=== PATIENT | male | born 1930 | race Caucasian/White ===

== ENCOUNTER 2016-10-05 09:47 | Observation (INO) | payer OTHER, BC ==
--- NOTE | 2016-10-05 10:43 | EDPHY ---
H & P Stated Complaint: sob, cough, aches, weak, no cp Time Seen by Provider: 10/05/16 10:18 HPI/ROS: CHIEF COMPLAINT: Cough and weakness HISTORY OF PRESENT ILLNESS: This is an 86-year-old male with history of coronary artery disease (tachyarrhythmia with defibrillator in place, and coronary artery disease status post stenting) and heart failure who presents with 2 days of nonproductive cough, worsening shortness of breath, difficulty sleeping, and poor appetite. He has not had fever. He denies chest pain. He has had an influenza vaccination. He is compliant with his medications, including Coumadin and Lasix. He does not have orthopnea or PND. He has not had abdominal pain, vomiting, or diarrhea. REVIEW OF SYSTEMS: A ten point review of systems was performed and is negative with the exception of the items mentioned in the HPI. Source: Patient, Family Exam Limitations: No limitations - Personal History Current Tetanus/Diphtheria Vaccine: Unsure Current Tetanus Diphtheria and Acellular Pertussis (TDAP): Unsure Tetanus Vaccine Date: < 10 years - Medical/Surgical History Hx Asthma: No Hx Chronic Respiratory Disease: No Hx Diabetes: No Hx Cardiac Disease: Yes Hx Renal Disease: No Hx Cirrhosis: No Hx Alcoholism: No Hx HIV/AIDS: No Hx Splenectomy or Spleen Trauma: No Other PMH: 1. Coronary artery disease status post LAD stenting. 2. Check arrhythmia with placement of AICD. 3. Valvular disease. 4. Chronic congestive heart failure. 5. Hypertension. 6. Prostate cancer. 7. Hypothyroid - Social History Smoking Status: Never smoked Additional Social History: He lives with his in [facility]. 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 He quit smoking in 1960. He occasionally drinks alcohol. - Physical Exam Exam: General Appearance: Alert. Vital signs reviewed. Blood pressure 135/75, otherwise normal at triage. Eyes: Pupils equal and round, no conjunctival injection, no discharge. Anicteric. ENT, Mouth: Mucous membranes are moist, no oropharyngeal erythema or edema. Neck: No lymphadenopathy, supple. Respiratory: Lungs with diminished breath sounds Cardiovascular: Irregularly irregular; no murmur, rub, or gallop. Gastrointestinal: Abdomen is soft and nontender, no masses or organomegaly, bowel sounds normal. Skin: Warm and dry, no rashes on exposed skin, normal color. Back: Nontender to palpation over the thoracolumbar spine. No CVAT. Extremities: No lower extremity edema, no calf tenderness or swelling. Neurological: Alert and oriented. Moving all four extremities easily and equally. TARUN. EOMI. Facial expression symmetric. Tongue midline. Psychiatric: Normal affect. Constitutional: Initial Vital Signs Temperature (C) 37.0 C 10/05/16 10:00 Respiratory Rate 18 10/05/16 10:00 Blood Pressure 135/75 H 10/05/16 10:00 O2 Sat (%) 94 10/05/16 10:00 O2 Delivery Mode Room Air Allergies/Adverse Reactions: No Known Allergies Allergy (Verified 05/31/16 17:07) Home Medications: Medication Instructions Recorded Aspirin EC [Aspirin EC 81 mg (*)] 81 mg PO DAILY 10/05/16 Atorvastatin Calcium [Lipitor 10 10 mg PO DAILY 10/05/16 mg (*)] Carvedilol Cr [Coreg Cr (RX)] 20 mg PO DAILY 10/05/16 Cholecalciferol Vit D3 [Vitamin D3 1,000 units PO DAILY 10/05/16 (*)] Furosemide [Lasix 20 MG (*)] 20 mg PO DAILY 10/05/16 Herbals/Supplements -Info Only 1 ea PO DAILY 10/05/16 Levothyroxine [Synthroid 25 mcg 25 mcg PO DAILY06 10/05/16 (*)] Vernon-3 Fatty Acids [Fish Oil 1000 2,000 mg PO DAILY 10/05/16 mg (*)] Warfarin Sodium [Coumadin 5MG (*)] 2.5 mg PO MWF@0900 10/05/16 Warfarin Sodium [Coumadin 5MG (*)] 5 mg PO SUTUTHSA@0900 10/05/16 Medical Decision Making - Diagnostics Imaging: Two-view chest x-ray reviewed by me. Shows cardiomegaly, no infiltrate. ED Course/Re-evaluation: 86-year-old male with history of coronary artery disease and who presents with generalized malaise, decreased appetite, and persistent cough. Influenza test is positive. At noon he began vomiting. He received Zofran IV. At this point he cannot tolerate Tamiflu. He is being admitted to the hospital for supportive care as needed. Differential Diagnosis: I considered a differential diagnosis including but not limited to pneumonia, urinary tract infection, viral syndrome, influenza, acute on chronic CHF, and ACS. - Data Points Laboratory Results: Laboratory Results 10/05/16 10:16 10/05/16 10:16 10/05/16 10/05/16 11:22 10:16 WBC 4.63 10^3/uL (3.80-9.50) RBC 4.62 10^6/uL (4.40-6.38) Hgb 15.1 g/dL (13.7-17.5) Hct 43.3 % (40.0-51.0) MCV 93.7 fL (81.5-99.8) MCH 32.7 pg (27.9-34.1) MCHC 34.9 g/dL (32.4-36.7) RDW 12.8 % (11.5-15.2) Plt Count 80 L 10^3/uL (150-400) MPV 11.2 fL (8.7-11.7) Neut % (Auto) 65.3 % (39.3-74.2) Lymph % (Auto) 17.3 % (15.0-45.0) Whitfield % (Auto) 14.9 H % (4.5-13.0) Eos % (Auto) 1.5 % (0.6-7.6) Baso % (Auto) 0.6 % (0.3-1.7) Nucleat RBC Rel Count 0.0 % (0.0-0.2) Absolute Neuts (auto) 3.02 10^3/uL (1.70-6.50) Absolute Lymphs (auto) 0.80 L 10^3/uL (1.00-3.00) Absolute Monos (auto) 0.69 10^3/uL (0.30-0.80) Absolute Eos (auto) 0.07 10^3/uL (0.03-0.40) Absolute Basos (auto) 0.03 10^3/uL (0.02-0.10) Absolute Nucleated RBC 0.00 10^3/uL (0-0.01) Immature Gran % 0.4 % (0.0-1.1) Immature Gran # 0.02 10^3/uL (0.00-0.10) PT 27.0 H SEC (12.0-15.0) INR 2.47 H (0.83-1.16) Sodium 136 mEq/L (134-144) Potassium 4.6 mEq/L (3.5-5.2) Chloride 99 mEq/L (97-110) Carbon Dioxide 23 mEq/l (22-31) Anion Gap 14 mEq/L (8-16) BUN 14 mg/dL (7-23) Creatinine 1.0 mg/dL (0.7-1.3) Estimated GFR > 60 Glucose 110 H mg/dL (70-100) Calcium 9.9 mg/dL (8.5-10.4) Troponin I 0.030 ng/mL (0-0.034) NT-Pro-B Natriuret Pep 1900 H pg/mL (0-450) Influenza Typ A,B (DFA) POSITIVE FOR FLU A H (NEGATIVE) Medications Given: Discontinued Medications Ondansetron HCl (Zofran) 4 mg IVP ONCE ONE Stop: 10/05/16 12:31 Last Admin: 10/05/16 13:04 Dose: 4 mg Departure - Departure Disposition: [facility] Acute Clinical Impression: Influenza A Condition: Good
[2016-10-05 10:49] LABS: % IMMATURE GRANULYOCYTES 0.4 % (0.0-1.1); ABSOLUTE IMMATURE GRANULOCYTES 0.02 10^3/uL (0.00-0.10); ADD DIFF? NO; ADD MORPH? NO; ADD SCAN? NO; ATYPICAL LYMPHOCYTE FLAG 10 (0-99); FRAGMENT RBC FLAG 0 (0-99); HEMATOCRIT 43.3 % (40.0-51.0); HEMOGLOBIN 15.1 g/dL (13.7-17.5); LEFT SHIFT FLG 0 (0-99); LIPEMIA HEMOLYSIS FLAG 90 (0-99); MEAN CELL HEMOGLOBIN 32.7 pg (27.9-34.1); MEAN CELL HEMOGLOBIN CONCENTR. 34.9 g/dL (32.4-36.7); MEAN CELL VOLUME 93.7 fL (81.5-99.8); MEAN PLATELET VOLUME 11.2 fL (8.7-11.7); PLATELET CLUMPS FLAG 30 (0-99); PLATELET COUNT 80 10^3/uL (150-400); RED BLOOD CELL COUNT 4.62 10^6/uL (4.40-6.38); RED CELL DISTRIBUTION WIDTH 12.8 % (11.5-15.2)
[2016-10-05 11:00] LABS: ANION GAP 14 mEq/L (8-16); CALCIUM 9.9 mg/dL (8.5-10.4); CARBON DIOXIDE 23 mEq/l (22-31); CHLORIDE 99 mEq/L (97-110); GLOMERULAR FILTRATION RATE > 60; GLUCOSE 110 mg/dL (70-100); POTASSIUM 4.6 mEq/L (3.5-5.2); SODIUM 136 mEq/L (134-144)
--- NOTE | 2016-10-05 11:09 | CPEKG ---
Heart Rate: 89 RR Interval: 674 QRSD Interval: 84 QT Interval: 364 QTC Interval: 443 QRS [place]am[place]: 29 T Wave [place]: -70 EKG Severity - ABNORMAL ECG - EKG Impression: ATRIAL FIBRILLATION, V-RATE 71-106 EKG Impression: LOW VOLTAGE IN FRONTAL LEADS EKG Impression: BORDERLINE R WAVE PROGRESSION, ANTERIOR LEADS EKG Impression: BORDERLINE T ABNORMALITIES, INFERIOR LEADS Electronically Signed By: Padma Enrique 05-Oct-2016 17:42:18
[2016-10-05 11:11] LABS: INR 2.47 (0.83-1.16)
[2016-10-05] MEDS ORDERED: ONDANSETRON 4 MG/2 ML VIAL ONE (11:59)
--- NOTE | 2016-10-05 12:12 | DX ---
Chest, Two Views 1447 hours History: Cough, dyspnea. Comparison: November 2012 Findings: Cardiac silhouette is moderately enlarged. Unipolar pacemaker. Mild bilateral peribronchi al thickening. No pneumonia, congestive heart failure, pleural effusion, or pneumothorax. Impression: 1. Cardiomegaly. 2. Bronchitis. 3. No definite pneumonia or pleural effusion.
[2016-10-05] MEDS ORDERED: ONDANSETRON 4 MG/2 ML VIAL IVP ONE (12:30)
[2016-10-05] MEDS ORDERED: ACETAMINOPHEN 325 MG TAB PO PRN (14:26)
[2016-10-05] MEDS ORDERED: ONDANSETRON 4 MG/2 ML VIAL IVP PRN (14:26)
--- NOTE | 2016-10-05 15:08 | GHP ---
[f rep st] HISTORY AND PHYSICAL DATE OF ADMISSION: 10/05/2016 CHIEF COMPLAINT: Cough and weakness. HISTORY OF PRESENT ILLNESS: This is an 86-year-old male with a history of coronary artery disease an d chronic congestive heart failure, who presented to the hospital with 2 days of worsening weakness. The patient states that he has not had anything to eat for 2 days. He has hardly been able to get o ut of bed and has been very sleepy. He denies any body aches. He denies any fevers, but he was note d to have a temperature upon arrival to the Medical Surgical floor. He denies any sick contacts. He reports a productive cough. He denies any chest pain. He had some nausea earlier today and 1 episo de of vomiting, but denies any diarrhea. He denies any urinary complaints. PAST MEDICAL HISTORY: Congestive heart failure, valvular heart disease, prostate cancer. PAST SURGICAL HISTORY: 1. Prostatectomy. 2. LAD stent. 3. AICD placement. HOME MEDICATIONS: Reviewed. Refer to [facility] for details. ALLERGIES: No known drug allergies. SOCIAL HISTORY: The patient lives independently with his in a house in [facility]. He dri nks alcohol occasionally. He denies any tobacco or illicit drug use. FAMILY HISTORY: Reviewed and noncontributory. REVIEW OF SYSTEMS: A comprehensive 10-point review of systems was done and was negative except for a s mentioned in the HPI. PHYSICAL EXAM: VITAL SIGNS: Blood pressure was 118/82, pulse of 82, respiratory rate 18, O2 saturat ion 99% on 2 L, temperature afebrile. GENERAL: In no acute distress. HEAD: Normocephalic, atrauma tic. Eyes are PERRLA. Sclerae anicteric. Mouth: Moist mucous membranes. NECK: Supple. No lymph adenopathy. CARDIOVASCULAR: S1, S2. There is no JVD. There is trace lower extremity edema. PULMO NARY: No wheezes rales or rhonchi. No respiratory distress. ABDOMEN: Soft, nontender, nondistende d. No guarding or rebound tenderness. Normoactive bowel sounds. EXTREMITIES: No clubbing or cyano sis. NEURO: Cranial nerves II through XII grossly intact. No focal motor or sensory deficits. SKI N: Clear, no rashes. DIAGNOSTICS: 1. Chest x-ray, which I visualized and personally interpreted, shows cardiomegaly, but no obvious pn eumonia or signs of acute congestive heart failure. 2. WBC is 4.6, hemoglobin 15.1, hematocrit 43.3, platelets 80. INR 2.47. 3. Sodium 136, potassium 4.6, chloride 99, CO2 23, BUN 14, creatinine 1, glucose 110. 4. BNP 18year-old. Troponin was 0.030. 5. Influenza was positive for influenza A. ASSESSMENT AND PLAN: This is an 86-year-old male presenting with weakness and shortness of breath, f ound to have: 1. Influenza A. Plan: The patient will be started on Tamiflu. Will encourage both oral nutrition and hydration. 2. History of chronic congestive heart failure that appears to be compensated. Plan: Monitor for s igns and symptoms of worsening congestive heart failure. 3. Elevated INR with history of being on warfarin. Plan: Continue to monitor INR while in the hosp ital. The patient will be admitted to the hospital under observation. He may be eligible for discharge on 10/06/2016 if he is eating and appears to be at his baseline. /[id number]/MODL
[2016-10-05] MEDS: WARFARIN SODIUM 5 MG TAB PO SCH (15:50)
[2016-10-05] MEDS: OSELTAMIVIR PHOSPHATE 75 MG CAP PO SCH (16:56)
[2016-10-05] MEDS ORDERED: MELATONIN 3 MG TAB PO SCH (21:00)
[2016-10-06 05:17] LABS: INR 2.86 (0.83-1.16); PROTIME(PATIENT) 30.4 SEC (12.0-15.0)
[2016-10-06] MEDS ORDERED: LEVOTHYROXINE 25 MCG TAB PO SCH (06:00)
[2016-10-06] MEDS ORDERED: CHOLECALCIFEROL VIT D3 1,000 UNITS TAB PO SCH (09:00)
[2016-10-06] MEDS ORDERED: ATORVASTATIN CALCIUM 10 MG TAB PO SCH (09:00)
[2016-10-06] MEDS ORDERED: ASPIRIN EC 81 MG TAB PO SCH (09:00)
[2016-10-06] MEDS ORDERED: OMEGA-3 FATTY ACIDS 1,000 MG CAP PO SCH (09:00)
[2016-10-06] MEDS ORDERED: Herbals/Supplements -Info Only PO SCH (09:00)
[2016-10-06] MEDS ORDERED: FUROSEMIDE 20 MG TAB PO SCH (09:00)
[2016-10-06] MEDS ORDERED: CARVEDILOL CR 20 MG CAP PO SCH (09:00)
[2016-10-06 09:21] VITALS: BP 99/60; PULSE 75; RESP 16; TEMP 98.5; O2SAT 91
[2016-10-06] MEDS: OSELTAMIVIR PHOSPHATE 75 MG CAP PO SCH (09:22)
[2016-10-06] MEDS: WARFARIN SODIUM 5 MG TAB PO SCH (09:22)
--- NOTE | 2016-10-06 13:35 | GDS ---
[f rep st] DISCHARGE SUMMARY DISCHARGE DIAGNOSES: 1. Influenza A. 2. History of chronic congestive heart failure. PHYSICAL EXAM: GENERAL: The patient is alert and oriented, in no acute distress. VITAL SIGNS: Afe brile at 36.9, pulse 75, respiratory rate 16, blood pressure is 99/60, saturating 91% on room air. I have seen and evaluated the patient on the day of discharge. HOSPITAL COURSE: Mr. Brothers is an 86-year-old male, who presented to the emergency room with compla ints of cough and weakness. He was evaluated and diagnosed with influenza A. During this hospitaliz ation, he was treated with supportive care, including hydration and supportive medication management. His symptoms have significantly improved. He is tolerating a regular diet. He is eager to be disc harged home. He will follow up in the outpatient setting with his primary care physician. There are no pending studies. DISCHARGE MEDICATIONS: I have provided the patient a prescription for Tamiflu. I have reviewed the patient's care with Dr. Walter Kennedy. /[id number]/MODL
[2016-10-07] MEDS ORDERED: WARFARIN SODIUM 5 MG TAB PO SCH (09:00)
== END 2016-10-06 11:50 | disposition home or self-care (01) ==
LOC: F3E 13:08
PROVIDERS: ADMIT Family Medicine; ATTEND Family Medicine
DX: J11.1 Influenza due to unidentified influenza virus with other respiratory manifestations (principal); I25.10 Atherosclerotic heart disease of native coronary artery without angina pectoris; I50.9 Heart failure, unspecified; I10 Essential (primary) hypertension; Z85.46 Personal history of malignant neoplasm of prostate; Z95.810 Presence of automatic (implantable) cardiac defibrillator; Z95.5 Presence of coronary angioplasty implant and graft
CPT/HCPCS: 71020; 93005; 96374; 97165; 99285; G0378; G8987; G8988; G8989; J2405

== ENCOUNTER → 2016-12-09 | Outpatient (CLI) | payer OTHER, BC | LOC: BMCIMAGING 12:26 | PROVIDERS: ATTEND Internal Medicine Cardiovascular Disease | DX: R06.09 Other forms of dyspnea (principal) ==

== ENCOUNTER 2018-11-15 18:16 | Inpatient (IN) | payer OTHER, BC ==
--- NOTE | 2018-11-15 19:06 | EDPHY ---
H & P Time Seen by Provider: 11/15/18 18:34 HPI/ROS: HPI Fatigue, shortness of breath. 88-year-old male by private vehicle with family. This patient has a history of atrial fibrillation and arrhythmia. He has a AICD. He reports that for the last day and a half he has had increased fatigue and shortness of breath when ambulating. He denies any associated chest pain. Denies palpitations. 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 He is currently on Eliquis. ROS: Constitutional: No fever, no chills. As above. Eyes: No discharge. No changes in vision. ENT: No sore throat. No nasal congestion or rhinorrhea. Respiratory: No cough. As above. Cardiac: No chest pain, no palpitations. Gastrointestinal: No abdominal pain, no vomiting, no diarrhea. Genitourinary: No hematuria. No dysuria or increased frequency with urination. Musculoskeletal: No back pain. No neck pain. No myalgias or arthralgias. Skin: No rashes. Neurological: No headache. No focal weakness or altered sensation. Past medical history: Coronary artery disease, status post LAD stenting, valvular disease, chronic congestive heart failure, hypertension, prostate cancer, hypothyroidism. Social history: Nonsmoker. Here with family. No alcohol. Physical Exam: General Appearance: Alert, is mildly anxious. This patient is responding to questions appropriately and in full sentences. This patient appears well- hydrated and well-nourished. Eyes: Pupils equal and round no pallor or injection. No lid edema, erythema or injection. Respiratory: There are no retractions, lungs are clear to auscultation anteriorly with good air movement bilaterally. No tachypnea. Cardiovascular: Irregular irregular rhythm. Faint holosystolic murmur. Gastrointestinal: Abdomen is soft and nontender, no masses, bowel sounds normal. No focal tenderness at McBurney's point. No Lorenzo sign. Neurological: Motor sensory function is grossly intact. Cranial nerves are normal. Gait is normal. Skin: Warm and dry, no rashes. Musculoskeletal: Neck is supple and nontender. Extremities are symmetrical. All joints range without pain or impingement. Psychiatric: No agitation. No depression. Database: EKG: EKG time is 6:51 p.m.: EKG shows narrow complex atrial fibrillation with intermittent PVCs, ventricular rate average 102. T-wave inversions noted in 2, 3 and AVF. Interpreted by me. Imaging: Chest x-ray AP portable; the cardiac mediastinal silhouette is unremarkable. No evidence of infiltrate or pneumothorax. No acute cardiopulmonary disease process noted. Interpreted by me. Procedures: Emergency department course: Triage vital signs reviewed and are unremarkable. IV was placed. The patient was placed on a environmental monitoring technician. Room air pulse oximetry is 96%. EKG obtained and reviewed by myself. 8:00 p.m., the patient was re-evaluated, he is resting comfortably at this time. Vital signs reviewed and are unremarkable. I discussed the results of his emergency department workup with him and family. I reviewed plan for admission. All of their questions were answered. Hospitalist paged. Patient' s presentation is likely secondary to exacerbation of his chronic CHF. 8:10 p.m., spoke with on-call hospitalist. Case discussed in detail. Patient accepted for admission to telemetry observation by Dr. Osborne. Differential Diagnosis: The differential diagnosis on this patient includes but is not limited to chronic congestive heart failure, atrial fibrillation, acute coronary syndrome, pulmonary embolus. Pneumonia unlikely. This represents a partial list of diagnoses considered. These considerations are based on history, physical exam , past history, reassessment and diagnostic testing. Smoking Status: Never smoked Constitutional: Initial Vital Signs Temperature (C) 36.9 C 11/15/18 18:24 Heart Rate 96 11/15/18 18:24 Respiratory Rate 16 11/15/18 18:24 Blood Pressure 106/75 11/15/18 18:24 O2 Sat (%) 96 11/15/18 18:24 O2 Delivery Mode Nasal Cannula O2 (L/minute) 2 Allergies/Adverse Reactions: No Known Allergies Allergy (Verified 11/15/18 20:09) Home Medications: Medication Instructions Recorded Atorvastatin Calcium [Lipitor 10 10 mg PO DAILY 10/05/16 mg (*)] Carvedilol Cr [Coreg Cr] 20 mg PO DAILY 10/05/16 Furosemide [Lasix 20 MG (*)] 20 mg PO DAILY 10/05/16 Levothyroxine [Synthroid 25 mcg 25 mcg PO DAILY06 10/05/16 (*)] Warfarin Sodium [Coumadin 5MG (*)] 2.5 mg PO MWF@0900 10/05/16 Warfarin Sodium [Coumadin 5MG (*)] 5 mg PO SUTUTHSA@0900 10/05/16 Allopurinol [Allopurinol 100 MG 200 mg PO DAILY 11/15/18 (*)] Potassium Chloride 20 meq PO DAILY 11/15/18 Medical Decision Making - Data Points Laboratory Results: Laboratory Results 11/16/18 04:48 11/16/18 04:48 Medications Given: Acetaminophen (Tylenol) 650 mg PO Q4HRS PRN PRN Reason: Pain, Mild/Fever, Can Take PO Stop: 05/14/19 21:13 Last Admin: 11/16/18 15:53 Dose: 650 mg Atorvastatin Calcium (Lipitor) 10 mg PO DAILY [facility] Stop: 05/15/19 08:59 Last Admin: 11/16/18 08:40 Dose: 10 mg Carvedilol (Coreg Cr) 20 mg PO DAILY [facility] Stop: 05/15/19 08:59 Last Admin: 11/16/18 09:22 Dose: 20 mg Furosemide (Lasix) 20 mg PO DAILY [facility] Stop: 05/15/19 08:59 Last Admin: 11/16/18 08:40 Dose: 20 mg Levothyroxine Sodium (Synthroid) 25 mcg PO DAILY06 [facility] Stop: 05/15/19 05:59 Last Admin: 11/17/18 05:15 Dose: 25 mcg Warfarin Sodium (Coumadin) 2.5 mg PO MWF@0900 [facility] Stop: 05/15/19 08:59 Last Admin: 11/16/18 10:06 Dose: 2.5 mg Discontinued Medications Allopurinol (Allopurinol) 200 mg PO DAILY PRN PRN Reason: Gout Flares Stop: 05/14/19 21:16 Last Admin: 11/16/18 10:11 Dose: 200 mg Sodium Chloride (Ns) 250 mls @ 250 mls/hr IV ONCE ONE Stop: 11/16/18 16:56 Last Admin: 11/16/18 16:18 Dose: 250 mls Sodium Chloride (Ns) 500 mls @ 0 mls/hr IV ONCE ONE PRN Reason: As Directed Stop: 11/16/18 18:31 Last Admin: 11/16/18 18:30 Dose: 500 mls Point of Care Test Results: Chemistry 11/15/18 19:00 POC Troponin I 0.02 ng/mL ng/mL (0.00-0.08) Departure - Departure Disposition: [facility] Inpatient Acute Clinical Impression: Dyspnea, Fatigue, History of chronic CHF, Atrial fibrillation
[2018-11-15 19:18] LABS: INR 1.89 (0.83-1.16); PROTIME(PATIENT) 21.8 SEC (12.0-15.0)
[2018-11-15 19:19] LABS: PLATELET COUNT 72 10^3/uL (150-400)
--- NOTE | 2018-11-15 21:01 | PDGENHP ---
History and Physical - Chief Complaint sob, - History of Present Illness 88-year-old male with past medical history of AFib, hypertension, hypothyroid, hyperlipidemia presented to the ER with increased dyspnea and fatigue. He said for the last 24 hr he has felt more short of breath and generally fatigued and felt that something was "not quite right". He chronically uses oxygen at night and has not had to increase his oxygen requirement. He denies any new onset lower extremity edema, weight gain or orthopnea. He denies any chest pain, cough, nausea vomiting or new onset of fevers. He said he could not place his finger on it but just felt that he was not right and something was wrong and he had increased shortness of breath and overall lassitude. History Information - Allergies/Home Medication List Allergies/Adverse Reactions: No Known Allergies Allergy (Verified 11/15/18 20:09) Home Medications: Atorvastatin Calcium [Lipitor 10 mg (*)] 10 mg PO DAILY 10/05/16 [Last Taken ] Carvedilol Cr [Coreg Cr] 20 mg PO DAILY 10/05/16 [Last Taken 10/04/16] Furosemide [Lasix 20 MG (*)] 20 mg PO DAILY 10/05/16 [Last Taken 10/04/16] Levothyroxine [Synthroid 25 mcg (*)] 25 mcg PO DAILY06 10/05/16 [Last Taken ] Warfarin Sodium [Coumadin 5MG (*)] 2.5 mg PO MWF@0900 10/05/16 [Last Taken 10/04] Warfarin Sodium [Coumadin 5MG (*)] 5 mg PO SUTUTHSA@0900 10/05/16 [Last Taken ] Allopurinol [Allopurinol 100 MG (*)] 200 mg PO DAILY PRN 11/15/18 [Last Taken Unknown] Potassium Chloride 20 meq PO DAILY 11/15/18 [Last Taken Unknown] I have personally reviewed and updated: family history, medical history, social history, surgical history - Past Medical History Additional medical history: AFib, aortic insufficiency, tricuspid insufficiency , hypertension, gout - Surgical History Additional surgical history: Nothing pertinent - Family History Positive for: non-pertinent - Social History Smoking Status: Never smoked Review of Systems Review of Systems: ROS: 10pt was reviewed & negative except for what was stated in HPI & below Physical Exam Physical Exam: Temp Pulse Resp BP Pulse Ox 36.9 C 79 20 128/78 H 98 11/15/18 18:24 11/15/18 20:17 11/15/18 20:17 11/15/18 20:17 11/15/18 20:17 O2 (L/minute) 2 Constitutional: no apparent distress, appears nourished, not in pain Eyes: PERRL, anicteric sclera, EOMI Ears, Nose, Mouth, Throat: moist mucous membranes, hearing normal, ears appear normal, no oral mucosal ulcers Cardiovascular: regular rate and rhythym, no murmur, rub, or gallop, No edema ( Trace edema to calves) Respiratory: no respiratory distress, no rales or rhonchi, clear to auscultation Gastrointestinal: normoactive bowel sounds, soft, non-tender abdomen, no palpable masses Genitourinary: no bladder fullness, no bladder tenderness Skin: warm, normal color, no rashes or abrasions, no fluctuance, no induration, No mottled Musculoskeletal: full muscle strength, no muscle tenderness, normal joint ROM, no joint effusions Psychiatric: interacting appropriately, not anxious, not encephalopathic, thought process linear Lymph, Heme, Immunologic: no cervical LAD, no supraclavicular LAD Lab Data & Imaging Review 11/15/18 18:55 11/15/18 18:55 WBC 4.71 10^3/uL (3.80-9.50) 11/15/18 18:55 RBC 4.20 10^6/uL (4.40-6.38) L 11/15/18 18:55 Hgb 13.7 g/dL (13.7-17.5) 11/15/18 18:55 Hct 40.3 % (40.0-51.0) 11/15/18 18:55 MCV 96.0 fL (81.5-99.8) 11/15/18 18:55 MCH 32.6 pg (27.9-34.1) 11/15/18 18:55 MCHC 34.0 g/dL (32.4-36.7) 11/15/18 18:55 RDW 14.6 % (11.5-15.2) 11/15/18 18:55 Plt Count 72 10^3/uL (150-400) L 11/15/18 18:55 MPV 11.5 fL (8.7-11.7) 11/15/18 18:55 Neut % (Auto) 66.0 % (39.3-74.2) 11/15/18 18:55 Lymph % (Auto) 19.3 % (15.0-45.0) 11/15/18 18:55 Gregg % (Auto) 13.0 % (4.5-13.0) 11/15/18 18:55 Eos % (Auto) 1.1 % (0.6-7.6) 11/15/18 18:55 Baso % (Auto) 0.4 % (0.3-1.7) 11/15/18 18: Nucleat RBC Rel Count 0.0 % (0.0-0.2) 11/15/18 18:55 Absolute Neuts (auto) 3.11 10^3/uL (1.70-6.50) 11/15/18 18:55 Absolute Lymphs (auto) 0.91 10^3/uL (1.00-3.00) L 11/15/18 18:55 Absolute Monos (auto) 0.61 10^3/uL (0.30-0.80) 11/15/18 18:55 Absolute Eos (auto) 0.05 10^3/uL (0.03-0.40) 11/15/18 18:55 Absolute Basos (auto) 0.02 10^3/uL (0.02-0.10) 11/15/18 18:55 Absolute Nucleated RBC 0.00 10^3/uL (0-0.01) 11/15/18 18:55 Immature Gran % 0.2 % (0.0-1.1) 11/15/18 18: Immature Gran # 0.01 10^3/uL (0.00-0.10) 11/15/18 18:55 PT 21.8 SEC (12.0-15.0) H 11/15/18 18:55 INR 1.89 (0.83-1.16) H 11/15/18 18:55 APTT 36.6 SEC (23.0-38.0) 11/15/18 18:55 D-Dimer 0.42 ug/mLFEU (0.00-0.50) 11/15/18 18:55 Sodium 134 mEq/L (135-145) L 11/15/18 18:55 Potassium 4.5 mEq/L (3.5-5.2) 11/15/18 18:55 Chloride 104 mEq/L (97-110) 11/15/18 18:55 Carbon Dioxide 21 mEq/l (22-31) L 11/15/18 18:55 Anion Gap 9 mEq/L (6-14) 11/15/18 18:55 BUN 16 mg/dL (7-23) 11/15/18 18:55 Creatinine 1.0 mg/dL (0.7-1.3) 11/15/18 18:55 Estimated GFR > 60 11/15/18 18:55 Glucose 101 mg/dL (70-100) H 11/15/18 18:55 Calcium 10.0 mg/dL (8.5-10.4) 11/15/18 18:55 POC Troponin I 0.02 ng/mL (0.00-0.08) 11/15/18 19:00 NT-Pro-B Natriuret Pep 1180 pg/mL (0-450) H 11/15/18 18:55 TSH 4.480 uIU/mL (0.465-4.680) 11/15/18 18:55 Assessment & Plan Assessment: 88-year-old male with past medical history of AFib, AICD placement, valvular heart disease who came in with increased dyspnea and fatigue Dyspnea (Acute)- the patient says that he uses 2 L of oxygen at night. Currently he is not above his baseline. I reviewed the chest x-ray which shows cardiomegaly but no infiltrates or effusions. His BMP when adjusted for age is within normal limits. D-dimer was negative essentially ruling out PE -oxygen p.r.n. -continue home Lasix -consult Cardiology to evaluate the morning AFib- currently rates controlled. INR 1.9. Takes Coreg -continue home Coreg -monitor on telemetry -continue Coumadin Hypothyroid- continue Synthroid, check TSH Gout- resume home allopurinol Hyperlipidemia- resume statin on discharge Prophylaxis- Coumadin and SCDs Fluids- none Electrolytes- within normal limits Nutrition-cardiac diet Cor-full Dispo- observation
[2018-11-15] MEDS ORDERED: ACETAMINOPHEN 325 MG TAB PO PRN (21:14)
[2018-11-15] MEDS ORDERED: ONDANSETRON DISINTEGRATING 4 MG TAB PO PRN (21:14)
[2018-11-15] MEDS ORDERED: ONDANSETRON 4 MG/2 ML VIAL IVP PRN (21:14)
[2018-11-15] MEDS ORDERED: ALLOPURINOL 100 MG TAB PO PRN (21:17)
--- NOTE | 2018-11-15 22:49 | CPEKG ---
Test Reason : OPEN Blood Pressure : / mmHG Vent. Rate : 102 BPM Atrial Rate : 000 BPM P-R Int : 178 ms QRS Dur : 103 ms QT Int : 365 ms P-R-T Axes : 000 030 262 degrees QTc Int : 476 ms Atrial fibrillation Ventricular premature complex Probable anterior infarct, age indeterminate Confirmed by Ruthie Morelos ([id number]) on 11/15/2018 10:48:42 PM Referred By: Ruthie Morelos Confirmed By:Ruthie Morelos
[2018-11-16] MEDS: LEVOTHYROXINE 25 MCG TAB PO SCH (04:49)
[2018-11-16 05:19] LABS: PLATELET COUNT 58 10^3/uL (150-400)
[2018-11-16 05:25] LABS: INR 2.16 (0.83-1.16); PROTIME(PATIENT) 24.1 SEC (12.0-15.0)
[2018-11-16] MEDS: FUROSEMIDE 20 MG TAB PO SCH (08:40)
[2018-11-16] MEDS: ATORVASTATIN CALCIUM 10 MG TAB PO SCH (08:40)
[2018-11-16] MEDS ORDERED: CARVEDILOL CR 20 MG CAP PO SCH (09:00)
[2018-11-16] MEDS ORDERED: WARFARIN SODIUM 5 MG TAB PO SCH (09:00)
--- NOTE | 2018-11-16 09:06 | HOSPPROG ---
Hospitalist Progress Note Assessment/Plan: 88-year-old male with past medical history of AFib, AICD placement, valvular heart disease who came in with increased dyspnea and fatigue. First encounter, chart reviewed. Dyspnea (Acute)- the patient says that he uses 2 L of oxygen at night -at his baseline this morning -BNP elevated, on Lasix -d dimer is negative CHF -unclear if diastolic or systolic-echo to be done AFib- currently rates controlled -continue home Coreg -reviewed conveyor monitor, he is in AFIB and rate controlled -INR is 2.16 -will get an echo Hypothyroid -Synthroid, TSH 4.4 Gout- resume home allopurinol Hyperlipidemia -statin Thrombocytopenia -has had this ongoing, but lower than his baseline -will need further w/u in the OP setting Plan: he feels better, but his and daughter said he has been having worsening shortness of breath, more lethargic and has had more swelling. Will get an echo. Reviewed his care with Bernie GALLARDO with cardiology. Cardiology will see. Subjective: Chidi said he is feeling better this morning, but tired due to not getting enough sleep last night. Objective: Vital Signs Temp Pulse Resp BP Pulse Ox 37.1 C 84 18 115/72 96 11/16/18 08:21 11/16/18 08:21 11/16/18 08:21 11/16/18 08:21 11/16/18 08:21 Laboratory Results 11/16/18 04:48 11/16/18 04:48 PT 24.1 SEC (12.0-15.0) H 11/16/18 04:48 INR 2.16 (0.83-1.16) H 11/16/18 04:48 - Physical Exam Constitutional: no apparent distress, appears nourished, not in pain Eyes: PERRL Ears, Nose, Mouth, Throat: hearing normal Cardiovascular: systolic murmur, irregularly irregular, No tachycardia Respiratory: no respiratory distress, reduced air movement Skin: warm Neurologic: AAOx3 Psychiatric: interacting appropriately ICD10 Worksheet Patient Problems: Problems Problem Status Onset Dyspnea Acute Fatigue Acute History of chronic CHF Acute Influenza A Acute
--- NOTE | 2018-11-16 12:08 | ECHO ---
[email or web address] [address] Main: [phone] Fax: Transthoracic Echocardiogram Name: JANELLE WYLIE MR#: [id number] Study Date: 11/16/2018 Study Time: 10:51 AM Date of : 1930 Age: 88 year(s) Height: 172.7 cm (68 in.) Weight: 69.4 kg (153 lb.) BSA: 1.82 m2 Gender: Male Examination: Echo Indication: Worsening shortness of breath/hx CHF/ICD, previous echo from [facility]. Image Quality: Good Contrast: Requested by: Ngoc Elias BP: 120 mmHg/80 mmHg Heart Rate: Rhythm: Indication: Worsening shortness of breath/hx CHF/ICD, previous echo from [facility]. Procedure Staff Ore Miner: Radha De La Cruz RDCS Reading Physician: Eugenio Hassan MD Requesting Provider: Conclusions: Mild concentric LV hypertrophy. Normal global systolic LV function. The ejection fraction is estimated to be 55-60 %. Severely dilated right ventricle. There is an ICD lead noted in the right ventricle. The right atrium is severely dilated. Mild mitral valve regurgitation is present. Moderate to severe aortic regurgitation. Severe tricuspid regurgitation is present. Tricuspid leaflets appear do not coapt causing the severe tricuspid regurgitation. RVSP is 30mHG.. Mildly dilated ascending aorta measuring 4.4 cm. RVSP may be underestimated given poor TR envelopes obtained. Measurements: Chambers Valvular Assessment AV/MV Valvular Assessment TV/PV Normal Normal Normal Name Value Range Name Value Range Name Value Range Ao Chandni (MM): 4.6 cm (2.2 cm-3.7 AV Vmax: 1.04 m/s (1 m/s-1.7 TR Vmax: 1.62 mm/s ( - ) cm) m/s) TR PGmax: 10 mmHg ( - ) IVSd (2D): 1.3 cm (0.6 cm-1.1 AV meanP mmHg ( - ) syst. PAP: 20 mmHg ( - ) cm) AR (PHT): 615 ms ( - ) LVDd (2D): 4.7 cm (4.2 cm-5.9 MV E Vmax: 0.71 m/s ( - ) cm) MV A Vmax: 0.31 m/s ( - ) LVDs (2D): 3.6 cm (2.1 cm-4 MV E/A: 2.29 ( - ) cm) LVPWd (2D): 1.2 cm (0.6 cm-1 cm) LVEF (BP): 62 % (>=55 %) EF Range: 55-60 % Patient: JANELLE WYLIE Study Date: 11/16/2018 Page 1 of 2 10:51 AM Continued Measurements: Chambers Valvular Assessment AV/MV Valvular Assessment TV/PV Name Value Name Value Name Value LADs: 5.1 cm MV E' Septal: 0.11 m/s CVP (est.): 10 mmHg LADs Lon.6 cm MV E/E' Septal: 6.30 LA Area: 36.0 cm2 MV E/E' Lateral: 4.70 AR Vmax: 3.53 cm/s Additional Vessels Name Value Ao Ascendin.4 cm Findings: Left Ventricle: Normal size left ventricle. Mild concentric LV hypertrophy. Normal global systolic LV function. The ejection fraction is estimated to be 55-60 %. LV septal motion consistent with RV volume overload. Cannot assess diastolic dysfunction.. Right Ventricle: Severely dilated right ventricle. There is an ICD lead noted in the right ventricle. There is a moderator band noted in the right ventricle. Left Atrium: The left atrium is moderately dilated. Right Atrium: The right atrium is severely dilated. Mitral Valve: The mitral valve is normal in appearance and function. Mild mitral valve regurgitation is present. Aortic Valve: The aortic valve is tri-leaflet. Mild aortic cusp calcification is noted. Moderate to severe aortic regurgitation. Tricuspid Valve: Severe tricuspid regurgitation is present. The pulmonary artery pressure is normal. Tricuspid leaflets appear do not coapt causing the severe tricuspid regurgitation. RVSP is 30mHG.. Pulmonic Valve: The pulmonic valve is normal in appearance and function. Mild pulmonic valve regurgitation is noted. Aorta: The aorta is normal. Mildly dilated ascending aorta measuring 4.4 cm. Pericardium: Trivial pericardial effusion. Exam Comments: RVSP may be underestimated given poor TR envelopes obtained. (No Signature Object) Patient: JANELLE WYLIE Study Date: 11/16/2018 Page 2 of 2 10:51 AM [id number]
--- NOTE | 2018-11-16 12:47 | GCON ---
[f rep st] CONSULTATION CARDIOLOGY CONSULT DATE OF CONSULTATION: 11/16/2018 INDICATIONS FOR CONSULT: Shortness of breath. HISTORY OF PRESENT ILLNESS: This is an 88-year-old male with a history of atrial fibrillation, hyper tension, hyperlipidemia, aortic regurgitation, who was admitted for increasing dyspnea and fatigue, w hich occurred suddenly yesterday afternoon. The patient indicates he was in normal state of health. He indicated that he felt more short of breath and fatigued, and when he stood up, felt an impending feeling of doom and needed to come to the emergency room for further evaluation. Prior to arrival t o the emergency room, the patient's D-dimer was negative. He did not have significant infiltrates on his x-ray. His atrial fibrillation was rate controlled and blood pressure and heart rate were stabl e. His ECG upon arrival showed atrial fibrillation, rate control with no acute ST changes. Troponin s are negative x1 set. Currently, the patient is resting quietly. He denies any current symptoms an d actually feels much better than his initial presentation. PAST MEDICAL HISTORY: Significant for atrial fibrillation, aortic regurgitation, hypertension, gout. FAMILY HISTORY: Noncontributory. SOCIAL HISTORY: He is . No smoking or drinking. HOME MEDICATIONS: Consist of Lipitor, Coreg, Lasix, Synthroid, Coumadin, allopurinol, potassium. REVIEW OF SYSTEMS: Patient currently denies any visual changes. No headache. No neck pain. No jaw pain. No chest pain. No back pain. No abdominal discomfort. He does indicate having dyspnea with minimal exertion and no lower extremity pain. PHYSICAL EXAM: VITALS: Patient currently afebrile, 96, blood pressure 110/70, heart rate is 52, res pirations 12, sating 95% on room air. HEENT: Pupils equal, round, regular to light and accommodatio n. Extraocular movements intact. CARDIOVASCULAR: Irregularly irregular , S1, S2. LUNGS: Decrease d breath sounds to the right base. ABDOMEN: Soft, nontender. No guarding. EXTREMITIES: No clubbi ng, no cyanosis, no edema. NEUROLOGIC: The patient is alert and oriented x3. LABORATORY VALUES: Show sodium 133, potassium 4.3, chloride 105, bicarb 21, BUN 16, creatinine 0.9, INR 2.1, hemoglobin 12.5, platelet count 58,000. ASSESSMENT/PLAN: Fatigue/shortness of breath. At this time, we will obtain a cardiac echo. The pat ient does have a history of significant aortic regurgitation and is currently a do not resuscitate. Given his advanced age and frailty, he does not appear to be a candidate for open aortic valve replac ement, and the patient and his family do not wish to have anything aggressive performed unless furthe r discussion can be performed. We will obtain the echo, monitor his renal function and adjust his La six dose accordingly. /[id number]/MODL
--- NOTE | 2018-11-16 13:49 | ASMTCMCOM ---
CM Note CM Note Notes: Pts case discussed w/ Ngoc Elias NP. Pt is a 88 y/o man admitted for dyspnea, weakness and CHF. Therapies have both cleared pt to d/c home without any needs. CM available for changes. Plan: Independent Date Signed: 11/16/2018 01:48 PM Electronically Signed By:AVNI Saeed
[2018-11-16] MEDS ORDERED: NS 250 ML IV ONE (15:57)
--- NOTE | 2018-11-16 16:24 | PDMN ---
Medical Necessity Medical necessity: [facility] General Admission: 88 yo w/ increased dyspnea/SOB and fatigue. Intially OBS for workup/tx and cardiology consult. Pt now with hypotension 80/55 requiring fluid bolus and low grade temp. Pt to cont on tele monitoring. Per cardiology get echo and monitor renal fx. Pt requires additional MN for new s/sx and additional dx testing, monitoring and tx of the above. Hx afib, aortic insufficiency, tricuspid insufficiency, HTN, gout, HLD, hypothyroid. Change to IP status 11/16/18@1558 per [employer] order.
[2018-11-16] MEDS ORDERED: NS 500 ML IV ONE (18:30)
[2018-11-17] MEDS: LEVOTHYROXINE 25 MCG TAB PO SCH (05:15)
[2018-11-17 05:54] LABS: INR 2.24 (0.83-1.16); PROTIME(PATIENT) 24.8 SEC (12.0-15.0)
--- NOTE | 2018-11-17 06:56 | PDCARPN ---
Cardiology Progress Note Chief Complaint: weakness Assessment/Plan: Assessment: SOB/weakness known hx of multiple valvular heart disease AF Plan: 11/17/18 06:55 feeling much better this AM echo shows mod severe AI/TR--known in the past labs stable OK from CV standpoint to d/c home, f/u with Dr. Montalvo next week Subjective: feeling better Reviewed/Discussed With: multidisciplinary team Time Spent with Patient: greater than 25 minutes Time Spent with Patient: Greater than 25 minutes spent on this patients care, greater than 50% of time spent counseling, educating, and coordinating care regarding the above mentioned plan. Objective: Vital Signs (8 Hrs) Temp Pulse Resp BP Pulse Ox 11/17/18 04:00 36.7 C 81 15 101/69 97 11/17/18 00:35 104/70 Intake/Output (24 Hrs) 11/16/18 11/17/18 11/18/18 05:59 05:59 05:59 Intake Total 550 Output Total 200 Balance 550 -200 Intake: Oral (ml) 550 Output: Urine (ml) 200 Urinal 200 Other: Number of Voids Toilet 2 Result Diagrams: 11/16/18 04:48 11/17/18 05:10 - Physical Exam Constitutional: no apparent distress Eyes: PERRL Ears, Nose, Mouth, Throat: moist mucous membranes Cardiovascular: irregularly irregular Peripheral Pulses: 1+: femoral (R), femoral (L) Gastrointestinal: normoactive bowel sounds Genitourinary: no suprapubic tenderness Skin: no rashes Musculoskeletal: no muscular tenderness Neurologic: AAOx3 ICD10 Worksheet Patient Problems: Problems Problem Status Onset Dyspnea Acute Fatigue Acute History of chronic CHF Acute Influenza A Acute
--- NOTE | 2018-11-17 08:49 | HOSPPROG ---
Hospitalist Progress Note Assessment/Plan: 88-year-old male with past medical history of AFib, AICD placement, valvular heart disease who came in with increased dyspnea and fatigue. Dyspnea (Acute)- the patient says that he uses 2 L of oxygen at night -at his baseline this morning -BNP elevated, on Lasix -d dimer is negative Bradycardia -has a pacer in place, heart rate yesterday decreased to the upper 38-40 per nursing staff -pacer interrogated and is capturing, sensing appropriately hypotension -multiple episodes of hypotension yesterday -will decrease his Coreg dose and have him f/u with Dr Montalvo next week Elevated bilirubin -hx of this, will have him f/u with his PCP AFib- currently rates controlled -decreased coreg dose due to low bp, to f/u w Dr Montalvo -reviewed classroom monitor, he is in AFIB and rate controlled -INR is 2.16 -will get an echo Hypothyroid -Synthroid, TSH 4.4 Gout- resume home allopurinol Hyperlipidemia -statin Thrombocytopenia -has had this ongoing, but lower than his baseline -will need further w/u in the OP setting Plan: dc home Subjective: Chidi feels well, has no complaints. Has much more energy. Objective: Vital Signs Temp Pulse Resp BP Pulse Ox 36.9 C 84 17 113/62 98 11/17/18 07:12 11/17/18 07:12 11/17/18 07:12 11/17/18 07:12 11/17/18 07:12 Laboratory Results 11/17/18 05:10 11/16/18 11/17/18 11/18/18 05:59 05:59 05:59 Intake Total 550 Output Total 200 Balance 550 -200 PT 24.8 SEC (12.0-15.0) H 11/17/18 05:10 INR 2.24 (0.83-1.16) H 11/17/18 05:10 - Physical Exam Constitutional: no apparent distress, appears nourished, not in pain Eyes: PERRL Ears, Nose, Mouth, Throat: hearing normal Cardiovascular: irregularly irregular Respiratory: no respiratory distress Skin: warm Musculoskeletal: full muscle strength Neurologic: AAOx3 Psychiatric: interacting appropriately ICD10 Worksheet Patient Problems: Problems Problem Status Onset Atrial fibrillation Acute Dyspnea Acute Fatigue Acute History of chronic CHF Acute Influenza A Acute
[2018-11-17] MEDS ORDERED: ALLOPURINOL 100 MG TAB PO SCH (09:00)
[2018-11-17] MEDS ORDERED: WARFARIN SODIUM 5 MG TAB PO SCH (09:00)
[2018-11-17] MEDS ORDERED: CARVEDILOL CR 10 MG CAP PO SCH (09:00)
[2018-11-17] MEDS: FUROSEMIDE 20 MG TAB PO SCH (09:15)
[2018-11-17] MEDS: ATORVASTATIN CALCIUM 10 MG TAB PO SCH (09:15)
--- NOTE | 2018-11-17 11:36 | ASMTCMCOM ---
CM Note CM Note Notes: Pts case discussed w/ Ngoc Elias NP. Ngoc is recommending HC, RN to assist w/ med management. CM met w/ pt and family for dispo planning. Pt and family are agreeable to HC services. Referral sent to [facility]. [facility] is able to accept for start of care. Pt and family is ok w/ this. CM confirmed pts address, phone number and PCP. CM to follow. Plan: [facility]; RN Date Signed: 11/17/2018 11:36 AM Electronically Signed By:AVNI Saeed
--- NOTE | 2018-11-17 11:51 | ASMTLACE ---
LACE Length of stay for Answers: 2 days current admission Acuity / Level of Answers: Yes Care: Did the patient have an inpatient admission? Comorbidities - select Answers: Any tumor (including all that apply lymphoma or leukemia) Congestive heart failure Coronary Artery Disease Other Notes: AFib; HTN; Hypothyroid # of Emergency department Answers: 1-2 visits in the last 6 months Score: 13 Date Signed: 11/17/2018 11:51 AM Electronically Signed By:AVNI Saeed
--- NOTE | 2018-11-17 12:06 | GDS ---
[f rep st] DISCHARGE SUMMARY DISCHARGE DIAGNOSES: 1. Dyspnea. 2. Bradycardia. 3. Hypotension. 4. Elevated bilirubin. 5. Atrial fibrillation, rate controlled. 6. Hypothyroidism. 7. Gout. 8. Hyperlipidemia. 9. Thrombocytopenia. CONSULTATION: Dr. Becker [facility] COURSE PER PROBLEM: 1. Dyspnea. He uses 2 liters of oxygen at night. He is back at his baseline. A D-dimer was checked, which is negative. 2. Bradycardia. His pacer was interrogated during his hospital stay. It is capturing and sensing appropriately. 3. Hypotension. He had multiple episodes of hypotension yesterday. I cut his Coreg dose in half and will have him follow up with Dr. Montalvo next week. He is feeling markedly better. He required several fluid boluses. 4. Elevated bilirubin. He has a history of this. Will further follow up with his PCP. 5. Atrial fibrillation, rate controlled. On Coumadin in addition. 6. Hypothyroidism. His TSH is 4.4. 7. Gout. On allopurinol. 8. Hyperlipidemia. On statin therapy. 9. Thrombocytopenia. This has been ongoing but lower than his baseline. DISCHARGE CONDITION: Stable. Blood pressure is 113/62, heart rate of 84, respiratory rate of 17. O2 saturations on 2 liters are 98%. Temperature is 36.9 Celsius. MEDICATIONS AT DISCHARGE: Please see the EMR. DISCHARGE INSTRUCTIONS: 1. To follow up with Dr. Montalvo next week. 2. His Coreg dose has been cut in half. He cannot cut this pill in half but needs to get a new prescription which I have given him. 3. Further followup with Dr. Ramos in regard to his low platelets and elevated bilirubin. Greater than 30 minutes discharging and coordinating the patient's care. /[id number]/MODL MTDD
[2018-11-17 12:07] VITALS: BP 109/87
--- NOTE | 2018-11-17 12:36 | ASDISCHSUM ---
Discharge Information Plan Status:Home with Home Health Medically Cleared to Leave:11/16/2018 Discharge Date:11/16/2018 CM D/C Disposition: ADT D/C Disposition:Home, Routine, Self-Care Projected Discharge Date:11/17/2018 11:00 AM Transportation at D/C: Discharge Delay Reason: Follow-Up Date:11/17/2018 11:00 AM Discharge Slot: Final Diagnosis: Placement Information Referral Type:*Home Health Care Services Referral ID:[id number] Provider Name:[facility] Address 1:[address] Address 2: City:[place] Selection Factors: State:[place] Patient Contact Information Contact Name:SNEHA Relationship: Address:[address] Work Phone: City:[place] Alternate Phone: State/Zip Code:[place] [address] Email: Financial Information Financial Class:Medicare Primary Plan Desc:MEDICARE INPATIENT Primary Plan Number:[id number] Secondary Plan Desc:[facility] Secondary Plan Number:[id number] Assessment Information LACE LACE Length of stay for Answers: 2 days current admission Acuity / Level of Answers: Yes Care: Did the patient have an inpatient admission? Comorbidities - select Answers: Any tumor (including all that apply lymphoma or leukemia) Congestive heart failure Coronary Artery Disease Other Notes: AFib; HTN; Hypothyroid # of Emergency department Answers: 1-2 visits in the last 6 months Score: 13 Date Signed: 11/17/2018 11:51 AM Electronically Signed By:AVNI Saeed [facility] CM Progress Note CM Note CM Note Notes: Pts case discussed w/ Ngoc Elias NP. Pt is a 88 y/o man admitted for dyspnea, weakness and CHF. Therapies have both cleared pt to d/c home without any needs. CM available for changes. Plan: Independent Date Signed: 11/16/2018 01:48 PM Electronically Signed By:AVNI Saeed [facility] CM Progress Note CM Note CM Note Notes: Pts case discussed w/ Ngoc Elias NP. Ngoc is recommending HC, RN to assist w/ med management. CM met w/ pt and family for dispo planning. Pt and family are agreeable to HC services. [facility] Pt and family is ok w/ this. CM confirmed pts address, phone number and PCP. CM to follow. Plan: [facility]; RN Date Signed: 11/17/2018 11:36 AM Electronically Signed By:AVNI Saeed Case Management Discharge Plan Note Case Management Discharge Discharge Order Complete? Answers: Yes Patient to Obtain Answers: via Family Medications Transportation Arranged Answers: Family/Friends EMTALA Complete Answers: No Case Management Transport Answers: No Form Complete Faxed Final Orders Answers: Yes Agency/Facility Transfer Answers: Yes Report Printed & Faxed to Receiving Agency Family Notified Answers: Yes Discharge Comments Notes: Pt is being d/c'd today. GEORGE Dodd will call to give report to [facility]. CM available for changes. Plan: [facility] RN Date Signed: 11/17/2018 12:35 PM Electronically Signed By:AVNI Saeed Intervention Information Intervention Type:*-Signed Date of Service:11/16/2018 10:41 AM Patient Type:Observation Staff Member:Shweta Rivera Hours: Discipline: Severity: Comment:
--- NOTE | 2018-11-17 12:36 | ASMTDCNOTE ---
Case Management Discharge Discharge Order Complete? Answers: Yes Patient to Obtain Answers: via Family Medications Transportation Arranged Answers: Family/Friends EMTALA Complete Answers: No Case Management Transport Answers: No Form Complete Faxed Final Orders Answers: Yes Agency/Facility Transfer Answers: Yes Report Printed & Faxed to Receiving Agency Family Notified Answers: Yes Discharge Comments Notes: Pt is being d/c'd today. GEORGE Dodd will call to give report to [facility]. CM available for changes. Plan: [facility]OR[facility] ABEL Date Signed: 11/17/2018 12:35 PM Electronically Signed By:AVNI Saeed
--- NOTE | 2018-11-17 16:32 | PDIAF ---
- Diagnosis Diagnosis: dyspnea, hypotension, afib, Code Status: Do Not Resuscitate - Medication Management Discharge Medications: electronically signed and located in the Home Medication List. - Orders Services needed: Home Care, Registered Nurse Home Care Face to Face: I certify that this patient was under my care and that I had the required [id number] encounter meeting the encounter requirements on the discharge day. My findings support the fact that the patient is homebound as defined in Home Care Face to Face Continued: CMS Chapter 7 Medicare Benefits Manual 30.1.1 , The condition of the patient is such that there exists a normal inability to leave home and consequently, leaving home would require a considerable and taxing effort. Isolation Type: None Diet Recommendation: no restrictions on diet Diet Texture: Regular Texture Diet Additional Instructions: stop taking the Coreg 20 mg daily I gave you a script for Coreg 10 mg daily (you can not cut the home dose you've been on in half) I have updated cardiology about this dose I sent your prescription to [facility] on [address] baseline you have an elevated bilirubin and low platelet count-this has been present in your history-F/U with Dr Ramos (in addition I will let her know about your admission) Get INR checked as you have done prior to this admission hope you and your beautiful have a HAPPY VALENTINES'S DAY!!! - Follow Up Care Current Providers and Referrals: Terry Montalvo MD [Medical Doctor] - Patient,NotPresent [Unknown] - As per Instructions
== END 2018-11-17 13:48 | disposition home health service (06) | DRG 204 ==
LOC: F3E 21:32 → OBSVTOIN 11-16 15:58
PROVIDERS: ADMIT Internal Medicine; ATTEND Internal Medicine
DX: R06.00 Dyspnea, unspecified (principal); I95.89 Other hypotension; T44.7X5A Adverse effect of beta-adrenoreceptor antagonists, initial encounter; I35.1 Nonrheumatic aortic (valve) insufficiency; I36.1 Nonrheumatic tricuspid (valve) insufficiency; Z99.81 Dependence on supplemental oxygen; I48.91 Unspecified atrial fibrillation; Z79.01 Long term (current) use of anticoagulants; I11.0 Hypertensive heart disease with heart failure; I50.9 Heart failure, unspecified; Z95.810 Presence of automatic (implantable) cardiac defibrillator; I25.10 Atherosclerotic heart disease of native coronary artery without angina pectoris; Z95.5 Presence of coronary angioplasty implant and graft; D69.6 Thrombocytopenia, unspecified; E78.5 Hyperlipidemia, unspecified; E03.9 Hypothyroidism, unspecified; M10.9 Gout, unspecified; Z85.46 Personal history of malignant neoplasm of prostate
CPT/HCPCS: 84484-ER; 97161-GP; 97165-GO; G0378